=== PATIENT | female | born 1980 ===

== ENCOUNTER 2017-07-16 07:35 | Emergency (ER) | payer OTHER ==
[2017-07-16 07:52] VITALS: BP 109/54
--- NOTE | 2017-07-16 08:03 | UC ---
Throat Pain/Nasal Guilherme HPI - HPI Summary HPI Summary: [address], PAIN WITH SWALLOWING, NAUSEA AND MILD COUGH. NO FEVER, EAR PAIN OR CONGESTION. - History of Current Complaint Chief Complaint: UCRespiratory Stated Complaint: SORE THROAT Time Seen by Provider: 07/16/17 07:49 Hx Obtained From: Patient Hx Last Menstrual Period: 06/20/17 Onset/Duration: Gradual Onset, Lasting Days, Still Present Severity: Moderate Pain Intensity: 7 Pain Scale Used: 0-10 Numeric Cough: Nonproductive Associated Signs & Symptoms: Negative: Wheezing, Hoarseness, Sinus Discomfort, Nasal Discharge, Fever, Rash - Allergies/Home Medications Allergies/Adverse Reactions: Allergies Allergy/AdvReac Type Severity Reaction Status Date / Time Amoxicillin Allergy See Comment Verified 07/16/17 07:46 Buspirone Allergy See Comment Verified 07/16/17 07:47 Codeine AdvReac See Comment Verified 07/16/17 07:47 Home Medications: Home Medications Levothyroxine TAB* [Synthroid 25 MCG TAB*] 07/16/17 [History] Pantoprazole Sodium [Protonix] 07/16/17 [History] Venlafaxine CAP (NF) [Effexor CAP (NF)] 07/16/17 [History] PMH/Surg Hx/FS Hx/Imm Hx - Additional Past Medical History Additional PMH: PELVIC CROSSED SYNDROME Endocrine History: Hypothyroidism - Surgical History Surgical History: Yes Surgery Procedure, Year, and Place: ovarian cysts removed 2002 - Family History Known Family History: Positive: Hypertension - Social History Alcohol Use: None Substance Use Type: None Smoking Status (MU): Never Smoked Tobacco Review of Systems Constitutional: Negative ENT: Sore Throat Respiratory: Cough Cardiovascular: Negative Gastrointestinal: Nausea All Other Systems Reviewed And Are Negative: Yes Physical Exam Triage Information Reviewed: Yes Appearance: Well-Appearing, No Pain Distress, Well-Nourished Vital Signs: Initial Vital Signs Temp 98.6 F 07/16/17 07:48 Pulse 75 07/16/17 07:48 Resp 16 07/16/17 07:48 BP 109/54 07/16/17 07:48 Pulse Ox 99 07/16/17 07:48 Vital Signs Reviewed: Yes Eyes: Positive: Conjunctiva Clear ENT: Positive: Hearing grossly normal, Pharyngeal erythema, TMs normal. Negative: Nasal congestion, Tonsillar swelling, Tonsillar exudate, Hoarse voice Neck: Positive: Supple, Nontender, No Lymphadenopathy Respiratory Exam: Normal Cardiovascular Exam: Normal Abdomen Description: Positive: Soft Musculoskeletal: Positive: No Edema Neurological: Positive: Alert Psychological: Positive: Age Appropriate Behavior Skin: Negative: rashes Diagnostics - Laboratory Diagnostic Studies Completed/Ordered: RAPID STREP NEGATIVE Throat Pain/Nasal Course/Dx - Differential Dx/Diagnosis Provider Diagnoses: ACUTE PHARYNGITIS Discharge - Discharge Plan Condition: Stable Disposition: HOME Patient Education Materials: Pharyngitis (ED) Referrals: JuanJ Cramer MD [Primary Care Provider] - If Needed Additional Instructions: STREP TEST NEGATIVE. YOUR SYMPTOMS ARE LIKELY VIRALLY MEDIATED AND SHOULD RESOLVE ON THEIR OWN WITH TIME. REST, HYDRATE, OTC MEDS NEEDED. SEEK FOLLOW-UP IF YOU ARE NOT IMPROVING OVER THE NEXT 1-2 WEEKS. OTC CHLORASEPTIC OR CEPACOL LOZENGES AND/OR IBUPROFEN FOR SORE THROAT NEEDED
== END 2017-07-16 08:27 | disposition home or self-care (01) ==
LOC: UCEAST 07:35
DX: J02.9 Acute pharyngitis, unspecified (principal)
CPT/HCPCS: 87651; 99201; G0463